=== PATIENT | female | born 1960 | race Caucasian/White ===

== ENCOUNTER → 2016-06-03 | Outpatient (CLI) | payer OTHER | LOC: MAMO 05-29 10:40 | DX: Z12.31 Encounter for screening mammogram for malignant neoplasm of breast (principal) | CPT/HCPCS: G0202 ==

== ENCOUNTER → 2016-06-30 | Outpatient (CLI) | payer OTHER | LOC: KOH-I 06-27 13:00 | DX: M54.6 Pain in thoracic spine (principal); M51.34 Other intervertebral disc degeneration, thoracic region | CPT/HCPCS: 72146 ==

== ENCOUNTER → 2016-08-22 | Outpatient (CLI) | payer OTHER | LOC: KOH-I 13:01 | DX: R22.31 Localized swelling, mass and lump, right upper limb (principal); M79.89 Other specified soft tissue disorders | CPT/HCPCS: 76881 ==